=== PATIENT | male | born 1990 | race Caucasian/White ===

== ENCOUNTER 2017-07-26 13:12 | Observation (INO) | payer SELFPAY ==
[2017-07-26 13:20] VITALS: BP 163/97; PULSE 50; RESP 20; TEMP 97.9; O2SAT 99
[2017-07-26] MEDS ORDERED: SODIUM CHLOR 0.9% 1000 ML INJ 1,000 ML IV SCH (13:57)
[2017-07-26] MEDS ORDERED: LIDOCAINE VISCOUS 2% SOLN 15 ML UDC SWISH-SWAL PRN (14:00)
--- NOTE | 2017-07-26 14:17 | HHI.HP ---
[facility] Primary Care Physician Non-Staff Admission Diagnosis Intractable nausea vomiting Diagnoses: Chief Complaint: Vomiting and abdominal pain Travel History International Travel<30 Days: No Contact w/Intl Traveler <30 Da: No Traveled to Known Affected Are: No History of Present Illness 26-year-old white male being admitted for intractable nausea vomiting. Patient was in his usual state of health until about 2 days ago he began experiencing some nausea followed by vomiting and abdominal pain. He says this happened to him after drinking some alcohol the night before. His girlfriend had risen to go to the emergency room at [place] where he says he was worked up and discharged home in stable condition. The next day he felt fine. However this morning his symptoms recurred in a very similar fashion with nausea vomiting followed by abdominal pain. He thinks this was triggered by alcohol as he did drink 3 drinks last night. He says he does not drink alcohol every day. Patient says he last used IV drugs 3 weeks ago and his urine drug screen is currently negative,; yet when I spoke to the emergency room doctor in [place] today she said that he confided in her that he last injected some heroin yesterday. Patient denies ever being diagnosed with any bacteremia or endocarditis in the past. Patient does endorse having slightly loose stools for a few days. Review of Systems Except as stated in HPI: all other systems reviewed are Neg Past Family Social History Past Medical History Asthma Past Surgical History No abdominal surgeries per patient Allergies: Coded Allergies: No Known Allergies (Unverified , 07/26/17) Family History Strokes per patient Social History Started IVDU since July to October, then says he relapsed and started using again since May. Lives w/ his girlfriend's friend. Moved down here from [facility] in the last 2 months. Physical Exam Vital Signs Afebrile, normotensive Physical Exam VS: afebrile GENERAL: Young white male, lying in bed, no acute distress, wearing a hoodie SKIN: Warm and dry. EYES: Pupils equal and round, slightly dilated. No scleral icterus. No injection or drainage. ENT: No nasal bleeding or discharge. Mucous membranes pink and moist. CARDIOVASCULAR: Regular rate and rhythm. 1/6 murmurs RESPIRATORY: No accessory muscle use. Clear to auscultation. GASTROINTESTINAL: Abdomen soft, no guarding, has mild to moderate tenderness to palpation diffusely over the abdomen with no masses palpated Extremities: No clubbing, cyanosis, or edema. No obvious deformities. MUSCULOSKELETAL: grossly intact ROM with 5/5 strength in upper and lower extremities proximally; adequate muscle bulk and tone for age and habitus NEUROLOGICAL: Awake and alert. No obvious cranial nerve deficits. No facial droop nor slurred speech noted. PSYCHIATRIC: Appropriate mood and affect; insight and judgment normal. Imaging I independently reviewed the chest x-ray from the [place] emergency room as well as the CT scan and see no acute findings or any substantial constipation though be causing the patient's symptoms. Caprini VTE Risk Assessment Caprini VTE Risk Assessment: No/Low Risk (score <= 1) Caprini Risk Assessment Model Point Value = 1 Point Value = 2 Point Value = 3 Point Value = 5 Age 41-60 Minor surgery BMI > 25 kg/m2 Swollen legs Varicose veins or History of unexplained or recurrent spontaneous Oral contraceptives or hormone replacement Sepsis (< 1 month) Serious lung disease, including pneumonia (< 1 month) Abnormal pulmonary function Acute myocardial infarction Congestive heart failure (< 1 month) History of inflammatory bowel disease Medical patient at bed rest Age 61-74 Arthroscopic surgery Major open surgery (> 45 min) Laparoscopic surgery (> 45 min) Malignancy Confined to bed (> 72 hours) Immobilizing plaster cast Central venous access Age >= 75 History of VTE Family history of VTE Factor V Leiden Prothrombin 24284T Lupus anticoagulant Anticardiolipin antibodies Elevated serum homocysteine Heparin-induced thrombocytopenia Other congenital or acquired thrombophilia Stroke (< 1 month) Elective arthroplasty Hip, pelvis, or leg fracture Acute spinal cord injury (< 1 month) Prophylaxis Regimen Total Risk Factor Score Risk Level Prophylaxis Regimen 0-1 Low Early ambulation 2 Moderate Order ONE of the following: *Sequential Compression Device (SCD) *Heparin 5000 units SQ BID 3-4 Higher Order ONE of the following medications: *Heparin 5000 units SQ TID *Enoxaparin/Lovenox 40 mg SQ daily (WT < 150 kg, CrCl > 30 mL/min) *Enoxaparin/Lovenox 30 mg SQ daily (WT < 150 kg, CrCl > 10-29 mL/min) *Enoxaparin/Lovenox 30 mg SQ BID (WT < 150 kg, CrCl > 30 mL/min) AND/OR *Sequential Compression Device (SCD) 5 or more Highest Order ONE of the following medications: *Heparin 5000 units SQ TID (Preferred with Epidurals) *Enoxaparin/Lovenox 40 mg SQ daily (WT < 150 kg, CrCl > 30 mL/min) *Enoxaparin/Lovenox 30 mg SQ daily (WT < 150 kg, CrCl > 10-29 mL/min) *Enoxaparin/Lovenox 30 mg SQ BID (WT < 150 kg, CrCl > 30 mL/min) AND *Sequential Compression Device (SCD) Assessment and Plan Assessment and Plan 36-year-old white male being admitted for intractable nausea vomiting possibly secondary to viral gastritis versus alcohol-induced gastritis/veisalgia . Nausea vomiting - Zofran and or Phenergan as needed - IV hydration - If fails clear liquid trial later tonight, will consider EGD in a.m. Lactic acidosis - Likely from nausea vomiting, IV hydration, do not suspect true sepsis. Given abx at [place]. abdominal pain - Most likely from retching and vomiting - Given his history of confined to drug use, I will refrain from opiates at this time and just simply apply a lidocaine patch as this appears to be more of his abdominal wall - Protonix IVDU - Minimal murmur heard, will obtain echocardiogram. Blood cultures obtained originally in [place] emergency room but I suspect these will be negative. Addendum: Echocardiogram showed no vegetations. Once informed of results patient was very insistent upon leaving. We instructed him that he should at least stay for a by mouth trial and then consider leaving, however patient was very adamant about leaving, said he wanted to smoking come back in. He told him that would be considered a discharge if he did that. Patient decided to leave anyway. Trav Stevenson MD Jul 26, 2017 14:17
[2017-07-26] MEDS ORDERED: LIDOCAINE HCL 5% PATCH T-DERMAL SCH (15:00)
[2017-07-26] MEDS ORDERED: PANTOPRAZOLE SOD 40 MG DELAYED RELEASE TAB PO SCH (15:00)
[2017-07-26 15:50] VITALS: BP 133/77; PULSE 52; RESP 20; TEMP 98.4; O2SAT 98
[2017-07-26] MEDS ORDERED: PROMETHAZINE INJ 25 MG/ML VIAL IM ONE (17:30)
--- NOTE | 2017-07-26 17:50 | ECHRPT ---
Indication: POSS SEPSIS, ENDOCARDITIS CONCLUSIONS Normal left ventricular size. Wall thickness is normal. The left ventricular systolic function is hyperdynamic with an estimated ejection fraction in the ra nge of 65- 70%. Mild pulmonary valve regurgitation. BP: 163 / 97 HR: 50 Rhythm: Sinus MEASUREMENTS (Male / Female) Normal Values Technical Quality:Fair 2D ECHO LV Diastolic Diameter PLAX 5.3 cm 4.2 - 5.9 / 3.9 - 5.3 cm LV Systolic Diameter PLAX 3.6 cm IVS Diastolic Thickness 0.7 cm 0.6 - 1.0 / 0.6 - 0.9 cm LVPW Diastolic Thickness 0.7 cm 0.6 - 1.0 / 0.6 - 0.9 cm LV Relative Wall Thickness 0.3 RV Internal Dim ED PLAX 2.0 cm LVOT Diameter 2.1 cm Aortic Root Diameter 3.0 cm LA Systolic Diameter LX 2.8 cm 3.0 - 4.0 / 2.7 - 3.8 cm M-MODE AV Cusp Separation MM 1.7 cm DOPPLER AV Peak Velocity 136.0 cm/s AV Peak Gradient 7.4 mmHg AV Mean Gradient 4.0 mmHg AV Velocity Time Integral 26.6 cm LVOT Peak Velocity 103.0 cm/s LVOT Peak Gradient 4.2 mmHg LVOT Velocity Time Integral 21.5 cm AV Area Cont Eq vti 2.8 cm AV Area Cont Eq pk 2.6 cm Mitral E Point Velocity 93.8 cm/s Mitral A Point Velocity 43.4 cm/s Mitral E to A Ratio 2.2 LV E' Lateral Velocity 22.2 cm/s Mitral E to LV E' Lateral Ratio 4.2 LV E' Septal Velocity 11.1 cm/s Mitral E to LV E' Septal Ratio 8.5 TR Peak Velocity 186.0 cm/s TR Peak Gradient 13.8 mmHg PV Peak Velocity 105.0 cm/s PV Peak Gradient 4.4 mmHg FINDINGS LEFT VENTRICLE Normal left ventricular size. Wall thickness is normal. The left ventricular systolic function is hyperdynamic with an estimated ejection fraction in the ra nge of 65- 70%. RIGHT VENTRICLE Normal right ventricular size and systolic function. LEFT ATRIUM The left atrial size is normal. RIGHT ATRIUM The right atrial size is normal. ATRIAL SEPTUM Normal atrial septal thickness without atrial level shunting by limited color doppler interrogation. AORTA The aortic root and proximal ascending aorta are normal in size on limited imaging. MITRAL VALVE Structurally normal mitral valve. No mitral valve stenosis or regurgitation. AORTIC VALVE Trileaflet aortic valve. No aortic valve stenosis or regurgitation. TRICUSPID VALVE Structurally normal tricuspid valve. No tricuspid valve stenosis or regurgitation. PULMONARY VALVE Mild pulmonary valve regurgitation. VESSELS The inferior vena cava is normal in size. PERICARDIUM No pericardial effusion. Chiqui Hanson MD, FACC (Electronically Signed) Final Date:26 July 2017 17:49
--- NOTE | 2017-07-27 08:34 | PD.AMA ---
Against Medical Advice Note Discharge Disposition: Against Medical Advice Pt Condition on Discharge: Stable AMA Statement Patient Russell Honeycutt has decided to leave the hospital against medical advice. This patient has the capacity to refuse care and understands the risks of leaving, including permanent disability and/or , and has had an opportunity to ask questions about his condition. The patient has been informed that he may return for care at any time, and follow up has been arranged/ advised. Trav Stevenson MD Jul 27, 2017 08:34
== END 2017-07-26 18:45 | disposition home or self-care (01) ==
LOC: PHEDDLT 13:12 → PH3B 13:22
PROVIDERS: ADMIT Hospitalist; ATTEND Hospitalist
DX: R11.2 Nausea with vomiting, unspecified (principal); E87.2 Acidosis; R10.9 Unspecified abdominal pain; J45.909 Unspecified asthma, uncomplicated; R01.1 Cardiac murmur, unspecified; F17.210 Nicotine dependence, cigarettes, uncomplicated
CPT/HCPCS: 71046; 74177; 80053; 80307; 81001; 83605; 83690; 83735; 85025; 85610; 85730; 87040; 87804; 93306; 96361; 96372; 96374; 96375; 99285; C9113; G0378; J0500; J1885; J2405; J2550; J7030; Q9967